=== PATIENT | female | born 1990 | race Caucasian/White ===

== ENCOUNTER 2017-07-22 12:14 | Emergency (ER) | payer SELFPAY ==
--- NOTE | 2017-07-22 13:41 | RAD REPORT ---
EXAM DESCRIPTION: RAD - Lumbar Spine 3 Views - 07/22/2017 1:33 pm CLINICAL HISTORY: Back pain FINDINGS: The alignment of the lumbar spine is satisfactory. No fracture or dislocation is seen. A small Schmorl's node is present at the L3-4 level Minimal spondylosis involves the lumbar spine
--- NOTE | 2017-07-22 13:59 | EDPHYS ---
Physician Documentation [facility] Name: Juanpablo De Paz Age: 27 yrs Sex: Female : 1990 Arrival Date: 07/22/2017 Time: 12:17 Bed 14 Private MD: ED Physician Adria Bey HPI: 07/22 13:40 This 27 yrs old Female presents to ER via Ambulatory with complaints of Back kb Pain. 13:40 The patient presents with pain that is acute, with no known mechanism of injury. The kb symptoms are located in the low back. The patient has not experienced similar symptoms in the past. The patient has not recently seen a physician. 13:41 Onset: The symptoms/episode began/occurred 3 day(s) ago. The pain radiates to the right kb leg. Associated signs and symptoms: The patient has no apparent associated signs or symptoms. The problem was sustained from unknown cause. Modifying factors: The patient symptoms are alleviated by nothing, the patient symptoms are aggravated by nothing. Severity of symptoms: At their worst the symptoms were mild, moderate, in the emergency department the symptoms are unchanged. 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 - Social history:: Smoking status: Patient/guardian denies using tobacco. ROS: 13:39 Constitutional: Negative for fever, chills, and weight loss, Cardiovascular: Negative kb for chest pain, palpitations, and edema, Respiratory: Negative for shortness of breath, cough, wheezing, and pleuritic chest pain, Abdomen/GI: Negative for abdominal pain, nausea, vomiting, diarrhea, and constipation, : Negative for injury, bleeding, discharge, and swelling, MS/Extremity: Negative for injury and deformity, Skin: Negative for injury, rash, and discoloration, Neuro: Negative for headache, weakness, numbness, tingling, and seizure. 13:39 Back: Positive for pain at rest, pain with movement, radiated pain, of the low back area. Exam: 13:39 Constitutional: This is a well developed, well nourished patient who is awake, alert, kb and in no acute distress. Head/Face: Normocephalic, atraumatic. Chest/axilla: Normal chest wall appearance and motion. Nontender with no deformity. No lesions are appreciated. Cardiovascular: Regular rate and rhythm with a normal S1 and S2. No gallops, murmurs, or rubs. Normal PMI, no JVD. No pulse deficits. Respiratory: Lungs have equal breath sounds bilaterally, clear to auscultation and percussion. No rales, rhonchi or wheezes noted. No increased work of breathing, no retractions or nasal flaring. Abdomen/GI: Soft, non-tender, with normal bowel sounds. No distension or tympany. No guarding or rebound. No evidence of tenderness throughout. Skin: Warm, dry with normal turgor. Normal color with no rashes, no lesions, and no evidence of cellulitis. MS/ Extremity: Pulses equal, no cyanosis. Neurovascular intact. Full, normal range of motion. Neuro: Awake and alert, GCS 15, oriented to person, place, time, and situation. Cranial nerves II-XII grossly intact. Motor strength 5/5 in all extremities. Sensory grossly intact. Cerebellar exam normal. Normal gait. 13:39 Back: pain, that is moderate, of the lumbar area, ROM is normal, normal spinal alignment noted. Vital Signs: 12:29 BP 110 / 65; Pulse 59; Resp 14; Temp 98.0(O); Pulse Ox 100% on R/A; Weight 79.38 kg lk1 (R); Height 5 ft. 7 in. (170.18 cm) (R); Pain 8/10; 13:39 BP 116 / 63; Pulse 53; Resp 16; Pulse Ox 100% ; mh5 14:08 BP 108 / 60; Pulse 52; Resp 16 S; Pulse Ox 98% on R/A; jl7 14:39 BP 107 / 60; Pulse 58; Resp 16 S; Pulse Ox 99% on R/A; Pain 6/10; jl7 12:29 Body Mass Index 27.41 (79.38 kg, 170.18 cm) lk1 MDM: 12:38 Patient medically screened. kb 13:40 Data reviewed: vital signs, nurses notes. Data interpreted: Pulse oximetry: on room air kb is 100 %. Interpretation: normal. 13:43 Counseling: I had a detailed discussion with the patient and/or guardian regarding: the kb historical points, exam findings, and any diagnostic results supporting the discharge/admit diagnosis, radiology results, the need for outpatient follow up, a family practitioner, to return to the emergency department if symptoms worsen or persist or if there are any questions or concerns that arise at home. 07/22 13:10 Order name: Urine Dipstick--Ancillary (enter results) bd 07/22 13:10 Order name: Urine --Ancillary (enter results) bd 07/22 12:48 Order name: Lumbar Spine (3 Views) XRAY; Complete Time: 13:42 kb 07/22 12:51 Order name: Urine Test (obtain specimen); Complete Time: 13:06 iw Administered Medications: 14:06 Drug: TORadol 60 mg Route: IM; Site: right gluteus; jl7 14:39 Follow up: Response: No adverse reaction; Pain is decreased jl7 Disposition: 07/23 07:30 Co-signature as Attending Physician, Adria Bey MD I agree with the assessment and sakshi plan of care. Disposition: 07/22/17 13:58 Discharged to Home. Impression: Low back pain. - Condition is Stable. - Discharge Instructions: Back Pain, Adult, [id number]. - Prescriptions for Prednisone 20 mg Oral Tablet - take 1 tablet by ORAL route once daily for 5 days; 5 tablet. Cyclobenzaprine 10 mg Oral Tablet - take 1 tablet by ORAL route every 8 hours As needed; 21 tablet. - Medication Reconciliation Form, Thank You Letter, Antibiotic Education, Prescription Opioid Use form. - Follow up: Emergency Department; When: As needed; Reason: Worsening of condition. Follow up: Private Physician; When: 2 - 3 days; Reason: Recheck today's complaints, Continuance of care, Re-evaluation by your physician. Signatures: Dispatcher [employer] Mandy Rich, ZORA HYLTON-Adria Medeiros MD MD cha Williams, Irene, RN Mallory Barnard RN RN lk1 Luanne Scott RN RN jl7
--- NOTE | 2017-07-22 13:59 | ER ---
Nurse's Notes [facility] Name: Juanpablo De Paz Age: 27 yrs Sex: Female : 1990 Arrival Date: 07/22/2017 Time: 12:17 Bed 14 Private MD: Diagnosis: Low back pain Presentation: 07/22 12:28 Presenting complaint: Patient states: "I have had back pain for a few days and this lk1 morning when I got up, I couldn't lift my right leg. It feels like everything in my lower back is shattered.". Transition of care: patient was not received from another setting of care. Onset of symptoms was July 20, 2017. Care prior to arrival: None. 12:28 Method Of Arrival: Ambulatory lk1 12:28 Acuity: ARTURO 4 lk1 Triage Assessment: 12:29 General: Appears uncomfortable, Behavior is calm, cooperative, appropriate for age. lk1 Pain: Complains of pain in low back area Pain currently is 8 out of 10 on a pain scale. Musculoskeletal: Circulation, motion, and sensation intact. Range of motion: intact in all extremities, Swelling absent. 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 - Social history:: Smoking status: Patient/guardian denies using tobacco. Screenin:35 Abuse screen: Denies threats or abuse. Denies injuries from another. Nutritional jl7 screening: No deficits noted. Tuberculosis screening: No symptoms or risk factors identified. Fall Risk None identified. Assessment: 12:35 General: Appears in no apparent distress. uncomfortable, Behavior is calm, cooperative, jl7 appropriate for age. Pain: Complains of pain in low back area Pain radiates to right leg Pain Quality of pain is described as shooting, Pain began 1 day ago. Is continuous. Neuro: Level of Consciousness is awake, alert, obeys commands, Oriented to person, place, time, situation, Moves all extremities. Cardiovascular: Patient's skin is warm and dry. Respiratory: Airway is patent Respiratory effort is even, unlabored, Respiratory pattern is regular, symmetrical. Derm: Skin is pink, warm \\T\\ dry. 13:30 Reassessment: No changes from previously documented assessment. Patient and/or family jl7 updated on plan of care and expected duration. Pain level reassessed. Patient is alert, oriented x 3, equal unlabored respirations, skin warm/dry/pink. 13:45 Reassessment: Pt requesting pain medications, provider notified, see MAR for orders. jl7 Vital Signs: 12:29 BP 110 / 65; Pulse 59; Resp 14; Temp 98.0(O); Pulse Ox 100% on R/A; Weight 79.38 kg lk1 (R); Height 5 ft. 7 in. (170.18 cm) (R); Pain 8/10; 13:39 BP 116 / 63; Pulse 53; Resp 16; Pulse Ox 100% ; mh5 14:08 BP 108 / 60; Pulse 52; Resp 16 S; Pulse Ox 98% on R/A; jl7 14:39 BP 107 / 60; Pulse 58; Resp 16 S; Pulse Ox 99% on R/A; Pain 6/10; jl7 12:29 Body Mass Index 27.41 (79.38 kg, 170.18 cm) lk1 ED Course: 12:17 Patient arrived in ED. mr 12:29 Triage completed. lk1 12:29 Arm band placed on right wrist. lk1 12:35 Patient has correct armband on for positive identification. Placed in gown. Bed in low jl7 position. Call light in reach. Side rails up X 1. Pulse ox on. NIBP on. 12:36 Luanne Scott RN is Primary Nurse. jl7 12:38 Mandy Martel FNP-C is PHCP. kb 12:38 Adria Bey MD is Attending Physician. kb 12:51 Radiology exam delayed due to test not completed at this time. jb2 13:06 Urine collected: clean catch specimen, clear. dh3 13:16 Patient moved to radiology via wheelchair. la2 13:29 X-ray completed. Patient tolerated procedure well. Patient moved back from radiology. la2 13:30 Lumbar Spine (3 Views) XRAY In Process Unspecified. EDMS 14:38 No provider procedures requiring assistance completed. Patient did not have IV access jl7 during this emergency room visit. Administered Medications: 14:06 Drug: TORadol 60 mg Route: IM; Site: right gluteus; jl7 14:39 Follow up: Response: No adverse reaction; Pain is decreased jl7 Outcome: 13:58 Discharge ordered by MD. ventura 14:38 Discharged to home ambulatory. jl7 14:38 Condition: stable 14:38 Discharge instructions given to patient, Instructed on discharge instructions, follow up and referral plans. medication usage, Demonstrated understanding of instructions, follow-up care, medications, Prescriptions given X 2. 14:39 Patient left the ED. jl7 Signatures: Dispatcher [employer] EDMS Mandy Martel, MILK RUNNER-C MILK RUNNER-Ckb Bridget TaylorkaushikMaxx Leah, RN RN lk1 Bridget Hong Jahala, RN RN jl7 Heena Wagner 3 Cynthia Valentine
[2017-07-22] MEDS ORDERED: KETOROLAC 30 MG/ML INJ ONE (14:15)
[2017-07-22 14:43] VITALS: TEMP 98
[2017-07-22 14:47] VITALS: BP 107/60; O2SAT 99
[2017-07-22 15:58] LABS: Urine Blood TRACE (NEG); Urine Glucose NEGATIVE (NEG); Urine Protein NEGATIVE (NEG)
== END 2017-07-22 14:39 | disposition home or self-care (01) ==
LOC: ER 12:14
DX: M54.5 Low back pain (principal); Z88.8 Allergy status to other drugs, medicaments and biological substances
CPT/HCPCS: 72100; 81003; 81025; 96372; 99284

== ENCOUNTER 2017-10-02 10:14 | Emergency (ER) | payer SELFPAY ==
[2017-10-02] MEDS ORDERED: TETRACAINE HCL 0.5% 2ML OPTH ONE (11:23)
[2017-10-02] MEDS ORDERED: FLUORESCEIN SODIUM 0.6 MG/WRAP ONE (11:23)
--- NOTE | 2017-10-02 11:55 | EDPHYS ---
Physician Documentation [facility] Name: Juanpablo De Paz Age: 27 yrs Sex: Female : 1990 Arrival Date: 10/02/2017 Time: 10:17 Bed 20 Private MD: None, None ED Physician Geovanny Encinas HPI: 10/02 11:04 This 27 yrs old Female presents to ER via Ambulatory with complaints of Eye jmm Problem. 11:04 The patient is experiencing matting or discharge, redness. Onset: The symptoms/episode jmm began/occurred 1 day(s) ago. Associated signs and symptoms: Pertinent positives: runny nose, congestion. Patient complains of itching to the right eye, irritation and drainage beginning 1 day ago. States having cough and congestion for 4 days. . 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 - Social history:: Smoking status: Patient uses tobacco products, smokes one-half pack cigarettes per day. - Ebola Screening: : No symptoms or risks identified at this time. ROS: 11:04 Constitutional: Negative for fever, chills, and weight loss. jmm 11:04 Abdomen/GI: Negative for abdominal pain, nausea, vomiting, diarrhea, and constipation, Back: Negative for injury and pain, : Negative for injury, bleeding, discharge, and swelling, MS/Extremity: Negative for injury and deformity, Skin: Negative for injury, rash, and discoloration, Neuro: Negative for headache, weakness, numbness, tingling, and seizure. 11:04 Eyes: Positive for discharge, redness. 11:04 ENT: Positive for sinus congestion. 11:04 Respiratory: Positive for cough. 11:04 All other systems are negative. Exam: 11:04 Constitutional: This is a well developed, well nourished patient who is awake, alert, jmm and in no acute distress. Head/Face: atraumatic. 11:04 Eyes: Extraocular movements: intact throughout, Conjunctiva: injected, in the right eye. 11:04 Neck: ROM/movement: is normal. 11:04 Cardiovascular: Rate: normal, Rhythm: regular. 11:04 Respiratory: the patient does not display signs of respiratory distress, Respirations: normal, Breath sounds: are clear throughout. 11:04 Abdomen/GI: Inspection: abdomen appears normal. 11:04 Back: ROM is normal. 11:04 Musculoskeletal/extremity: ROM: intact in all extremities. 11:04 Skin: Appearance: Color: normal in color. 11:04 Neuro: Orientation: is normal, Mentation: is normal, Memory: is normal. 11:04 Psych: Behavior/mood is pleasant, cooperative. 11:04 Eyes: Corneas: abrasion, is not appreciated, a fluorescein strip employed to [facility] the findings. 11:04 Visual Acuity: I have reviewed the nursing documentation. [facility] Vital Signs: 10:25 BP 114 / 63; Pulse 58; Resp 16 S; Temp 98.5(O); Pulse Ox 100% on R/A; Weight 79.38 kg aa5 (R); Height 5 ft. 7 in. (170.18 cm) (R); Pain 0/10; 12:01 BP 121 / 69; Pulse 63; Resp 19; Pulse Ox 99% on R/A; aj 10:25 Body Mass Index 27.41 (79.38 kg, 170.18 cm) aa5 Visual Acuity: 11:17 Left Eye Visual acuity 20/30, ; Right Eye Visual acuity 20/15, ; Both Eyes Visual dh3 acuity 20/15; Without Lenses; MDM: 11:04 [facility] medically screened. [facility] 11:07 Differential diagnosis: Infectious conjunctivitis in right eye. Data reviewed: [facility] signs, nurses notes. 12:00 Counseling: I had a detailed discussion with the patient and/or guardian regarding: the [facility] historical points, exam findings, and any diagnostic results supporting the discharge/admit diagnosis, the presence of at least one elevated blood pressure reading (>120/80) during this emergency department visit, the need for outpatient follow up, to return to the emergency department if symptoms worsen or persist or if there are any questions or concerns that arise at home. 10/02 11:04 Order name: Fluoresene Opth strip; Complete Time: 11:21 [facility] 10/02 11:04 Order name: Visual Acuity; Complete Time: 11:18 [facility] Administered Medications: 11:57 Drug: Tetracaine Drops 0.5 % 1 drops Route: Ophthalmic; Site: right eye; aj Disposition: 14:37 Co-signature as Attending Physician, Geovanny Encinas MD I agree with the assessment and kdr plan of care. Disposition: 10/02/17 11:55 Discharged to Home. Impression: Other acute conjunctivitis. - Condition is Stable. - Discharge Instructions: Eye - Viral Conjunctivitis. - Prescriptions for Erythromycin 5 mg/gram (0.5 %) Ophthalmic Ointment - apply 1 ribbon by OPHTHALMIC route every 8 hours; 1 tube. - Work release form, Medication Reconciliation Form, Thank You Letter, Antibiotic Education, Prescription Opioid Use form. - Follow up: Private Physician; When: 1 - 2 days; Reason: Continuance of care. Signatures: Gloria Smith, RN Geovanny Peterson MD MD kdr Mickail, Joel, PA PA jmm Calderon, Audri, RN RN aa5 Corrections: (The following items were deleted from the chart) 12:03 11:55 10/02/2017 11:55 Discharged to Home. Impression: Other acute conjunctivitis. aj Condition is Stable. Forms are Medication Reconciliation Form, Thank You Letter, Antibiotic Education, Prescription Opioid Use. Follow up: Private Physician; When: 1 - 2 days; Reason: Continuance of care. ginna
--- NOTE | 2017-10-02 11:55 | ER ---
Nurse's Notes [facility] Name: Juanpablo De Paz Age: 27 yrs Sex: Female : 1990 Arrival Date: 10/02/2017 Time: 10:17 Bed 20 Private MD: None, None Diagnosis: Other acute conjunctivitis Presentation: 10/02 10:24 Presenting complaint: Patient states: drainage to right eye x 4 days. Pt states "my now aa5 it's starting to get red and irritated and the drainage is yellowish now". Transition of care: patient was not received from another setting of care. Onset of symptoms was September 2017. Risk Assessment: Do you want to hurt yourself or someone else? Patient reports no desire to harm self or others. Initial Sepsis Screen: Does the patient meet any 2 criteria? No. Patient's initial sepsis screen is negative. Does the patient have a suspected source of infection? No. Patient's initial sepsis screen is negative. Care prior to arrival: None. 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 - Social history:: Smoking status: Patient uses tobacco products, smokes one-half pack cigarettes per day. - Ebola Screening: : No symptoms or risks identified at this time. Screenin:34 Abuse screen: Denies threats or abuse. Denies injuries from another. Nutritional aj screening: No deficits noted. Tuberculosis screening: No symptoms or risk factors identified. Fall Risk None identified. Assessment: 10:33 General: Appears in no apparent distress. comfortable, Behavior is calm, cooperative, aj appropriate for age. Pain: Denies pain. Neuro: Level of Consciousness is awake, alert, obeys commands, Oriented to person, place, time, situation, Appropriate for age. Respiratory: Airway is patent Respiratory effort is even, unlabored, Respiratory pattern is regular, symmetrical. EENT: Reports discharge from right eye, redness to conjunctiva. Vital Signs: 10:25 BP 114 / 63; Pulse 58; Resp 16 S; Temp 98.5(O); Pulse Ox 100% on R/A; Weight 79.38 kg aa5 (R); Height 5 ft. 7 in. (170.18 cm) (R); Pain 0/10; 12:01 BP 121 / 69; Pulse 63; Resp 19; Pulse Ox 99% on R/A; aj 10:25 Body Mass Index 27.41 (79.38 kg, 170.18 cm) aa5 Visual Acuity: 11:17 Left Eye Visual acuity 20/30, ; Right Eye Visual acuity 20/15, ; Both Eyes Visual dh3 acuity 20/15; Without Lenses; ED Course: 10:17 Patient arrived in ED. sb2 10:18 None, None is Private Physician. sb2 10:25 Triage completed. aa5 10:29 Kyle Solorio PA is PHCP. [facility] 10:29 Geovanny Encinas MD is Attending Physician. [facility] 10:33 Gloria Smith, RN is Primary Nurse. aj 10:34 Patient has correct armband on for positive identification. aj 12:01 No provider procedures requiring assistance completed. Patient did not have IV access aj during this emergency room visit. Administered Medications: 11:57 Drug: Tetracaine Drops 0.5 % 1 drops Route: Ophthalmic; Site: right eye; aj Outcome: 11:55 Discharge ordered by . jmm 12:01 Discharged to home ambulatory. aj 12:01 Condition: good 12:01 Discharge instructions given to patient, Instructed on discharge instructions, follow up and referral plans. medication usage, Demonstrated understanding of instructions, follow-up care, medications, Prescriptions given X 1. 12:03 Patient left the ED. aj Signatures: Gloria Smith, RN RN Kyle Hayes PA PA jmm Calderon, Audri, RN RN 5 Heena Wagner [facility] Nieves Garcia sb2
[2017-10-02 12:21] VITALS: TEMP 98.5
[2017-10-02 12:22] VITALS: BP 121/69; O2SAT 99
== END 2017-10-02 12:03 | disposition home or self-care (01) ==
LOC: ER 10:14
DX: H10.31 Unspecified acute conjunctivitis, right eye (principal); F17.210 Nicotine dependence, cigarettes, uncomplicated; Z88.8 Allergy status to other drugs, medicaments and biological substances
CPT/HCPCS: 99283

== ENCOUNTER 2018-02-01 09:49 | Emergency (ER) | payer SELFPAY ==
[2018-02-01 10:38] LABS: Urine Bacteria <20 /HPF (<20); Urine Culture Reflex Order REFLEXED; Urine RBC NONE SEEN /HPF (NONE SEEN)
--- NOTE | 2018-02-01 11:01 | EDPHYS ---
Physician Documentation [facility] Name: Juanpablo De Paz Age: 28 yrs Sex: Female : 1990 Arrival Date: 02/01/2018 Time: 09:51 Bed 23 Private MD: ED Physician Griselda Turcios HPI: 02/01 10:36 This 28 yrs old Female presents to ER via Ambulatory with complaints of ma2 Urinary Problem. 10:36 The patient presents with urinary symptoms, dysuria. Onset: The symptoms/episode ma2 began/occurred gradually, 3 day(s) ago. Associated signs and symptoms: Pertinent positives: Pertinent negatives: constipation, diarrhea, dysuria, nausea, urinary frequency, vaginal discharge, vomiting. Severity of symptoms: At their worst the symptoms were mild, in the emergency department the symptoms are unchanged. The patient has experienced similar episodes in the past. 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 - Social history:: Smoking status: Patient uses tobacco products, smokes one-half pack cigarettes per day, Patient/guardian denies using alcohol, street drugs, The patient lives with family. - Ebola Screening: : No symptoms or risks identified at this time. - Family history:: not pertinent. ROS: 10:36 Positive for urinary symptoms, Negative for injury or acute deformity, hematuria, ma2 pelvic pain, flank pain, difficulty urinating, bladder incontinence, foul smelling urine, vaginal bleeding, vaginal discharge, vaginal itching, menstrual abnormality, acute changes. 10:36 Constitutional: Negative for fever, chills, and weight loss. 10:36 All other systems are negative. Exam: 10:36 Constitutional: This is a well developed, well nourished patient who is awake, alert, ma2 and in no acute distress. Chest/axilla: Normal chest wall appearance and motion. Nontender with no deformity. No lesions are appreciated. Cardiovascular: Regular rate and rhythm with a normal S1 and S2. No gallops, murmurs, or rubs. Normal PMI, no JVD. No pulse deficits. Respiratory: Lungs have equal breath sounds bilaterally, clear to auscultation and percussion. No rales, rhonchi or wheezes noted. No increased work of breathing, no retractions or nasal flaring. Abdomen/GI: Soft, non-tender, with normal bowel sounds. No distension or tympany. No guarding or rebound. No evidence of tenderness throughout. MS/ Extremity: Pulses equal, no cyanosis. Neurovascular intact. Full, normal range of motion. Neuro: Awake and alert, GCS 15, oriented to person, place, time, and situation. Cranial nerves II-XII grossly intact. Motor strength 5/5 in all extremities. Sensory grossly intact. Cerebellar exam normal. Normal gait. Vital Signs: 09:51 Pulse 71; Resp 18; Temp 97.1; Pulse Ox 100% ; Weight 77.11 kg; Height 5 ft. 7 in. sv (170.18 cm); Pain 7/10; 10:05 BP 140 / 77; aj1 11:12 BP 127 / 74; Pulse 59; Resp 16; Pulse Ox 100% on R/A; aj1 09:51 Body Mass Index 26.63 (77.11 kg, 170.18 cm) sv MDM: 09:57 Patient medically screened. ma2 10:36 Differential diagnosis: menorrhea, urinary tract infection. Data reviewed: vital signs, ca2 nurses notes, EMS record. Counseling: I had a detailed discussion with the patient and/or guardian regarding: the historical points, exam findings, and any diagnostic results supporting the discharge/admit diagnosis, the presence of at least one elevated blood pressure reading (>120/80) during this emergency department visit, lab results, the need for outpatient follow up. 02/01 10:02 Order name: Urine Microscopic Only; Complete Time: 10:44 ca2 02/01 10:40 Order name: Urine Culture EDMS 02/01 10:02 Order name: Urine Dipstick-Ancillary (obtain specimen); Complete Time: 10:16 [facility] 02/01 10:59 Order name: Urine Dipstick--Ancillary (enter results) bd 02/01 10:59 Order name: Urine --Ancillary (enter results) bd Administered Medications: No medications were administered Disposition: 02/01/18 11:00 Discharged to Home. Impression: Cystitis, unspecified without hematuria. - Condition is Stable. - Discharge Instructions: Urinary Tract Infection, Adult. - Prescriptions for Tylenol- Codeine #3 300-30 mg Oral Tablet - take 2 tablet by ORAL route every 6 hours As needed; 6 tablet. Bactrim DS 800- 160 mg Oral Tablet - take 1 tablet by ORAL route every 12 hours for 5 days; 10 tablet. - Medication Reconciliation Form, Thank You Letter, Antibiotic Education, Prescription Opioid Use form. - Follow up: Private Physician; When: Tomorrow; Reason: Continuance of care. Signatures: Dispatcher [employer] EDCrystal Alvarez RN RN aj1 Laine Lyles RN RN sv Alzahri, Mohammad, MD MD ma2 Corrections: (The following items were deleted from the chart) 11:14 11:00 02/01/2018 11:00 Discharged to Home. Impression: Cystitis, unspecified without aj1 hematuria. Condition is Stable. Forms are Medication Reconciliation Form, Thank You Letter, Antibiotic Education, Prescription Opioid Use. Follow up: Private Physician; When: Tomorrow; Reason: Continuance of care. ma2
--- NOTE | 2018-02-01 11:01 | ER ---
Nurse's Notes [facility] Name: Juanpablo De Paz Age: 28 yrs Sex: Female : 1990 Arrival Date: 02/01/2018 Time: 09:51 Bed 23 Private MD: Diagnosis: Cystitis, unspecified without hematuria Presentation: 02/01 09:51 Presenting complaint: Patient states: dysuria, burning w/urination and lower abd pain sv since Thursday. c/o lightheaded, denies fever or diarrhea. Transition of care: patient was not received from another setting of care. Onset of symptoms was January 30, 2018. Care prior to arrival: None. 09:51 Method Of Arrival: Ambulatory sv 09:51 Acuity: ARTURO 3 sv 10:19 Initial Sepsis Screen: Does the patient meet any 2 criteria? No. Patient's initial aj1 sepsis screen is negative. Does the patient have a suspected source of infection? Yes: Dysuria/Frequency/Urgency/UTI. 10:19 Risk Assessment: Do you want to hurt yourself or someone else? Patient reports no aj1 desire to harm self or others. 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 - Social history:: Smoking status: Patient uses tobacco products, smokes one-half pack cigarettes per day, Patient/guardian denies using alcohol, street drugs, The patient lives with family. - Ebola Screening: : No symptoms or risks identified at this time. - Family history:: not pertinent. Screenin:05 Abuse screen: Denies threats or abuse. Denies injuries from another. Nutritional aj1 screening: No deficits noted. Tuberculosis screening: No symptoms or risk factors identified. 11:13 Fall Risk None identified. aj1 Assessment: 10:05 General: Appears in no apparent distress. uncomfortable, Behavior is calm, cooperative, aj1 appropriate for age. Pain: Complains of pain in right lower quadrant and left lower quadrant. Neuro: Level of Consciousness is awake, alert, obeys commands, Oriented to person, place, time, situation, Reports dizziness, Patient states that she feels like she is dehydrated because she does not drink enough water. Cardiovascular: Patient's skin is warm and dry. Respiratory: Airway is patent Respiratory effort is even, unlabored, Respiratory pattern is regular, symmetrical. GI: Abdomen is flat, non-distended, Abd is soft and non tender X 4 quads. Reports lower abdominal pain, nausea, Patient currently denies diarrhea, vomiting. : Reports burning with urination. EENT: No signs and/or symptoms were reported regarding the EENT system. Derm: No signs and/or symptoms reported regarding the dermatologic system. Skin is pink, warm \T\ dry. normal. Musculoskeletal: No signs and/or symptoms reported regarding the musculoskeletal system. Circulation, motion, and sensation intact. 10:21 Reassessment: Patient given water to drink for oral rehydration per verbal order from aj1 Dr. Turcios. 11:12 Reassessment: Patient appears in no apparent distress at this time. No changes from aj1 previously documented assessment. Patient and/or family updated on plan of care and expected duration. Pain level reassessed. Patient is alert, oriented x 3, equal unlabored respirations, skin warm/dry/pink. Vital Signs: 09:51 Pulse 71; Resp 18; Temp 97.1; Pulse Ox 100% ; Weight 77.11 kg; Height 5 ft. 7 in. sv (170.18 cm); Pain 7/10; 10:05 BP 140 / 77; aj1 11:12 BP 127 / 74; Pulse 59; Resp 16; Pulse Ox 100% on R/A; aj1 09:51 Body Mass Index 26.63 (77.11 kg, 170.18 cm) sv ED Course: 09:51 Patient arrived in ED. as 09:51 Arm band placed on Patient placed in an exam room, on a stretcher. sv 09:56 Griselda Turcios MD is Attending Physician. ma2 09:58 Triage completed. sv 09:59 Crystal Coats, ALTHEA is Primary Nurse. aj1 10:05 Patient has correct armband on for positive identification. Bed in low position. Call aj1 light in reach. Side rails up X 1. 10:05 No provider procedures requiring assistance completed. aj1 10:11 Urine collected: clean catch specimen, clear. aj1 11:13 Patient did not have IV access during this emergency room visit. aj1 Administered Medications: No medications were administered Outcome: 11:00 Discharge ordered by . cesario 11:13 Discharged to home ambulatory. aj1 11:13 Condition: good 11:13 Discharge instructions given to patient, Instructed on discharge instructions, follow up and referral plans. no drinking with medication, no driving heavy equipment, medication usage, Demonstrated understanding of instructions, follow-up care, medications, Prescriptions given X 2. 11:14 Patient left the ED. aj1 Addendum: 02/04/2018 08:48 Addendum: Culture Results: Positive urine culture. No further action required. Bacteria s s sensitive to prescribed antibiotic. Signatures: Crystal Coats RN RN aj1 Laine Lyles RN RN sv Martinez, Amelia as Smirch, Shelby, RN RN Griselda Turcios MD MD ma2 Corrections: (The following items were deleted from the chart) 02/01 10:20 10:05 Neuro: Level of Consciousness is awake, alert, obeys commands, Oriented to aj1 person, place, time, situation, aj1
[2018-02-01 12:58] LABS: Urine Blood TRACE (NEG); Urine Glucose NEGATIVE (NEG); Urine Protein NEGATIVE (NEG)
[2018-02-02 14:35] VITALS: BP 127/74; TEMP 97.1; O2SAT 100
== END 2018-02-01 11:14 | disposition home or self-care (01) ==
LOC: ER 09:49
DX: N30.90 Cystitis, unspecified without hematuria (principal); F17.210 Nicotine dependence, cigarettes, uncomplicated; Z88.8 Allergy status to other drugs, medicaments and biological substances
CPT/HCPCS: 81003; 81015; 81025; 87077; 87086; 87088; 87186; 99283

== ENCOUNTER 2018-04-09 09:50 | Emergency (ER) | payer SELFPAY ==
--- NOTE | 2018-04-09 10:33 | RAD REPORT ---
EXAM DESCRIPTION: US - Extremity Venous Uni Ltd - 04/09/2018 10:28 am CLINICAL HISTORY: PAIN Leg swelling and edema. COMPARISON: No comparisons FINDINGS: Left lower extremity venous system was interrogated with Doppler technique. Normal flow, c ompressibility and augmentation was noted. There is no DVT present. IMPRESSION: No evidence of left lower extremity deep venous thrombosis.
[2018-04-09] MEDS ORDERED: IBUPROFEN 200 MG TAB PO ONE (10:58)
[2018-04-09] MEDS ORDERED: IBUPROFEN 400 MG TAB ONE (10:58)
[2018-04-09] MEDS ORDERED: HYDROCODONE/APAP 5/325 MG TAB ONE (10:58)
--- NOTE | 2018-04-09 11:17 | ER ---
Nurse's Notes [facility] Name: Juanpablo De Paz Age: 28 yrs Sex: Female : 1990 Arrival Date: 04/09/2018 Time: 09:53 Bed 13 Private MD: None, None Diagnosis: Pain in left lower leg Presentation: 04/09 09:53 Presenting complaint: Patient states: Thursday, dandy been dealing with my L leg hurting, hj back of my leg below the knee and my L foot; reports foot numbness; pain is 9/10; denies trauma to the area; denies any open wound; denies fever and chills; reports hx of sciata pain;. Transition of care: patient was not received from another setting of care. Onset of symptoms was April 09, 2018. Risk Assessment: Do you want to hurt yourself or someone else? Patient reports no desire to harm self or others. Initial Sepsis Screen: Does the patient meet any 2 criteria? No. Patient's initial sepsis screen is negative. Does the patient have a suspected source of infection? No. Patient's initial sepsis screen is negative. Care prior to arrival: None. 09:53 Method Of Arrival: Ambulatory 09:53 Acuity: ARTURO 4 hj Triage Assessment: 09:56 General: Appears in no apparent distress. uncomfortable, Behavior is calm, cooperative, hj appropriate for age. Pain: Complains of pain in left leg. 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 - Social history:: Smoking status: Patient uses tobacco products, smokes one-half pack cigarettes per day, Patient uses alcohol, but reports only rare drinking. - Ebola Screening: : Patient negative for fever greater than or equal to 101.5 degrees Fahrenheit, and additional compatible Ebola Virus Disease symptoms Patient denies exposure to infectious person Patient denies travel to an Ebola-affected area in the 21 days before illness onset. Screenin:57 Abuse screen: Denies threats or abuse. Denies injuries from another. Nutritional hj screening: No deficits noted. Tuberculosis screening: No symptoms or risk factors identified. Fall Risk None identified. Assessment: 10:01 General: Appears in no apparent distress. Behavior is calm, cooperative. Pain: la1 Complains of pain in lateral aspect of left foot, left calf and medial aspect of left foot Pain currently is 9 out of 10 on a pain scale. Neuro: Level of Consciousness is awake, alert, obeys commands, Oriented to person, place, time, situation, Transit Police Officer are equal bilaterally Moves all extremities. Full function Gait is steady, Speech is normal, Facial symmetry appears normal, Pupils are PERRLA. Cardiovascular: Patient's skin is warm and dry. Respiratory: Airway is patent Respiratory effort is even, unlabored, Respiratory pattern is regular, symmetrical, Breath sounds are clear bilaterally. GI: No signs and/or symptoms were reported involving the gastrointestinal system. : No signs and/or symptoms were reported regarding the genitourinary system. 10:53 Reassessment: Patient appears in no apparent distress at this time. No changes from la1 previously documented assessment. Patient and/or family updated on plan of care and expected duration. Pain level reassessed. Vital Signs: 09:57 BP 120 / 69; Pulse 65; Resp 18; Temp 97.9(TE); Pulse Ox 100% on R/A; Weight 74.84 kg; hj Height 5 ft. 7 in. (170.18 cm); Pain 9/10; 09:57 Body Mass Index 25.84 (74.84 kg, 170.18 cm) ED Course: 09:53 Patient arrived in ED. mr 09:53 None, None is Private Physician. mr 09:56 Triage completed. hj 09:57 Arm band placed on right wrist. hj 09:59 Jarett Parikh, ALTHEA is Primary Nurse. la1 09:59 Patient has correct armband on for positive identification. Bed in low position. Call light in reach. Side rails up X 1. Adult w/ patient. 10:00 Eyal Toney NP is PHCP. pm1 10:00 Justin Ovalle MD is Attending Physician. pm1 10:28 Extremity Venous Uni Ltd US In Process Unspecified. EDMS 11:25 Crutch training done. Edin wrap to left knee. mh5 11:27 No provider procedures requiring assistance completed. Patient did not have IV access la1 during this emergency room visit. Administered Medications: 10:52 Drug: [place] 5 mg-325 mg 1 tabs Route: PO; la1 10:54 Follow up: Response: Medication administered at discharge. la1 10:52 Drug: Ibuprofen 600 mg Route: PO; la1 10:53 Follow up: Response: Medication administered at discharge. la1 Outcome: 11:17 Discharge ordered by MD. pm1 11:27 Discharged to home ambulatory, with crutches, with family. la1 11:27 Condition: stable 11:27 Discharge instructions given to patient, Instructed on discharge instructions, follow up and referral plans. no driving heavy equipment, medication usage, Demonstrated understanding of instructions, follow-up care, medications, crutch walking, Prescriptions given X 2. 11:27 Patient left the ED. la1 Signatures: Dispatcher [employer] ED Randi TaylorJarett, RN RN la1 Abdullahi Ventura RN RN hj Marinas, Patrick, NP MULTI OPERATION FORMING MACHINE SETTER 1 Bridget Hong [facility] Corrections: (The following items were deleted from the chart) 09:58 09:53 Presenting complaint: Patient states: Thursday, dandy been dealing with my L leg hj hurting, back of my leg below the knee and my L foot; reports foot numbness; pain is 9/10; denies trauma to the area; denies any open wound; denies fever and chills; hj 09:59 09:57 Pulse 65bpm; Resp 18bpm; Pulse Ox 100% RA; Temp 97.9F Temporal; 74.84 kg; Height hj 5 ft. 7 in.; BMI: 25.8; Pain 9/10; hj
--- NOTE | 2018-04-09 11:17 | EDPHYS ---
Physician Documentation [facility] Name: Juanpablo De Paz Age: 28 yrs Sex: Female : 1990 Arrival Date: 04/09/2018 Time: 09:53 Bed 13 Private MD: None, None ED Physician Justin Ovalle HPI: 04/09 10:06 This 28 yrs old Female presents to ER via Ambulatory with complaints of Left pm1 Leg Pain. 10:06 The patient presents with pain, that is acute. The complaints affect the left pm1 hamstring. Context: The problem was sustained at home, resulted from an unknown cause, the patient can fully bear weight, the patient is able to ambulate, with mild difficulty, Problem is a result from a previous injury: No. Onset: The symptoms/episode began/occurred 5 day(s) ago. Modifying factors: The symptoms are alleviated by remaining still, the symptoms are aggravated by straightening/flexing left knee. Associated signs and symptoms: Pertinent negatives calf tenderness, fever, nausea, numbness, swelling, tingling, vomiting, warmth. Treatment prior to arrival includes: no previous treatment. Severity of symptoms: in the emergency department the symptoms are unchanged. The patient has not experienced similar symptoms in the past. The patient has not recently seen a physician. 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 - Social history:: Smoking status: Patient uses tobacco products, smokes one-half pack cigarettes per day, Patient uses alcohol, but reports only rare drinking. - Ebola Screening: : Patient negative for fever greater than or equal to 101.5 degrees Fahrenheit, and additional compatible Ebola Virus Disease symptoms Patient denies exposure to infectious person Patient denies travel to an Ebola-affected area in the 21 days before illness onset. ROS: 10:06 Constitutional: Negative for fever, chills, and weight loss, Eyes: Negative for injury, pm1 pain, redness, and discharge, ENT: Negative for injury, pain, and discharge, Neck: Negative for injury, pain, and swelling, Cardiovascular: Negative for chest pain, palpitations, and edema, Respiratory: Negative for shortness of breath, cough, wheezing, and pleuritic chest pain, Abdomen/GI: Negative for abdominal pain, nausea, vomiting, diarrhea, and constipation, Back: Negative for injury and pain, : Negative for injury, bleeding, discharge, and swelling. 10:06 Skin: Negative for injury, rash, and discoloration. 10:06 MS/extremity: Positive for pain, tenderness, of the left hamstring, Negative for decreased range of motion, deformity, swelling. 10:06 Neuro: Positive for tingling, of the left foot, Negative for headache, weakness. Exam: 10:06 Constitutional: This is a well developed, well nourished patient who is awake, alert, pm1 and in no acute distress. Head/Face: Normocephalic, atraumatic. Neck: Trachea midline, no thyromegaly or masses palpated, and no cervical lymphadenopathy. Supple, full range of motion without nuchal rigidity, or vertebral point tenderness. No Meningismus. Chest/axilla: Normal chest wall appearance and motion. Nontender with no deformity. No lesions are appreciated. Cardiovascular: Regular rate and rhythm with a normal S1 and S2. No gallops, murmurs, or rubs. Normal PMI, no JVD. No pulse deficits. Respiratory: Lungs have equal breath sounds bilaterally, clear to auscultation and percussion. No rales, rhonchi or wheezes noted. No increased work of breathing, no retractions or nasal flaring. Abdomen/GI: Soft, non-tender, with normal bowel sounds. No distension or tympany. No guarding or rebound. No evidence of tenderness throughout. Back: No spinal tenderness. No costovertebral tenderness. Full range of motion. Skin: Warm, dry with normal turgor. Normal color with no rashes, no lesions, and no evidence of cellulitis. 10:06 Musculoskeletal/extremity: Extremities: grossly normal except: noted in the left hamstring: tenderness, Reproduction of left hamstring pain with flexion of left knee, There is no evidence of decreased ROM, deformity, ecchymosis, erythema, swelling. Vital Signs: 09:57 BP 120 / 69; Pulse 65; Resp 18; Temp 97.9(TE); Pulse Ox 100% on R/A; Weight 74.84 kg; hj Height 5 ft. 7 in. (170.18 cm); Pain 12/28; 09:57 Body Mass Index 25.84 (74.84 kg, 170.18 cm) hj MDM: 10:00 Patient medically screened. pm1 10:06 Data reviewed: vital signs. Data interpreted: Pulse oximetry: on room air is 100 %. pm1 Interpretation: normal. 11:10 Counseling: I had a detailed discussion with the patient and/or guardian regarding: the pm1 historical points, exam findings, and any diagnostic results supporting the discharge/admit diagnosis, radiology results, the need for outpatient follow up, a orthopedic surgeon, to return to the emergency department if symptoms worsen or persist or if there are any questions or concerns that arise at home. 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 pm1 No mention of cyst on radiology report. Reexamined patient and unable to palpated cyst. Recommended patient to follow up with orthopedics for further evaluation and treatment of possible sherman's cyst. 04/09 10:04 Order name: Extremity Venous Uni Ltd US; Complete Time: 10:43 pm1 04/09 11:17 Order name: Crutches; Complete Time: 11:25 pm1 04/09 11:20 Order name: Edin Wrap; Complete Time: 11:24 pm1 Administered Medications: 10:52 Drug: [place] 5 mg-325 mg 1 tabs Route: PO; la1 10:54 Follow up: Response: Medication administered at discharge. la1 10:52 Drug: Ibuprofen 600 mg Route: PO; la1 10:53 Follow up: Response: Medication administered at discharge. la1 Disposition: 11:43 Co-signature as Attending Physician, Justin Ovalle MD. rn Disposition: 04/09/18 11:17 Discharged to Home. Impression: Pain in left lower leg. - Condition is Stable. - Discharge Instructions: Sherman Cyst, Crutch Use, Musculoskeletal Pain. - Prescriptions for Tylenol- Codeine #3 300-30 mg Oral Tablet - take 2 tablets by ORAL route every 6 hours As needed; 20 tablet. Cyclobenzaprine 10 mg Oral Tablet - take 1 tablet by ORAL route every 8 hours As needed; 30 tablet. - Medication Reconciliation Form, Thank You Letter, Prescription Opioid Use form. - Follow up: Private Physician; When: 2 - 3 days; Reason: Recheck today's complaints, Continuance of care, Re-evaluation by your physician. - Problem is new. - Symptoms have improved. Signatures: Dispatcher [employer] EDMS Justin Ovalle MD MD rn Attema, Lee, RN RN la1 Abdullahi Ventura RN RN hj Marinas, Patrick, JAVON BLACK OXIDE OPERATOR pm1 Corrections: (The following items were deleted from the chart) 11:27 11:17 04/09/2018 11:17 Discharged to Home. Impression: Pain in left lower leg. la1 Condition is Stable. Discharge Instructions: [place]hrman Cyst, Musculoskeletal Pain, Crutch Use. Forms are Medication Reconciliation Form, Thank You Letter, Antibiotic Education, Prescription Opioid Use. Follow up: Private Physician; When: 2 - 3 days; Reason: Recheck today's complaints, Continuance of care, Re-evaluation by your physician. Problem is new. Symptoms have improved. pm1
[2018-04-09 11:39] VITALS: BP 120/69; TEMP 97.9; O2SAT 100
--- OUTSIDE RECORDS SUMMARY | 2018-04-09 18:42 | XMS REPORT ---
:1990 [facility] Address [address] [place] [address] Dr. Peoples [address] [place] [id number] Care Team Providers Name Role Phone Unavailable Unavailable Unavailable Problems This patient has no known problems. Allergies, Adverse Reactions, Alerts This patient has no known allergies or adverse reactions. Medications This patient has no known medications.
== END 2018-04-09 11:27 | disposition home or self-care (01) ==
LOC: ER 09:50
DX: M79.662 Pain in left lower leg (principal); F17.210 Nicotine dependence, cigarettes, uncomplicated; Z88.3 Allergy status to other anti-infective agents
CPT/HCPCS: 93971; 99284

== ENCOUNTER 2018-08-21 07:22 | Emergency (ER) | payer SELFPAY ==
--- OUTSIDE RECORDS SUMMARY | 2018-08-21 07:24 | XMS REPORT ---
:1990 [facility] Address [address] [place] [address] Dr. Peoples [address] [place] [address] Care Team Providers Name Role Phone Unavailable Unavailable Unavailable Problems This patient has no known problems. Allergies, Adverse Reactions, Alerts This patient has no known allergies or adverse reactions. Medications This patient has no known medications.
--- NOTE | 2018-08-21 08:31 | ER ---
Nurse's Notes [facility] Name: Juanpablo De Paz Age: 28 yrs Sex: Female : 1990 Arrival Date: 08/21/2018 Time: 07:25 Bed 18 Private MD: None, None Diagnosis: Sacroiliitis, not elsewhere classified;Sciatica, left side Presentation: 08/21 07:37 Presenting complaint: Patient states: "we drove to [place] for a last Thursday aa5 and I got back Thursday and on Thursday I threw up and after that my left leg has been hurting". Pt c/o left buttocks pain and left leg pain. Pt states "It feels like a Darron horse pain". Transition of care: patient was not received from another setting of care. Onset of symptoms was July 2018. Risk Assessment: Do you want to hurt yourself or someone else? Patient reports no desire to harm self or others. Initial Sepsis Screen: Does the patient meet any 2 criteria? No. Patient's initial sepsis screen is negative. Does the patient have a suspected source of infection? No. Patient's initial sepsis screen is negative. Care prior to arrival: None. 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 - Social history:: Smoking status: Patient uses tobacco products, smokes one-half pack cigarettes per day, Patient uses MJ. - Ebola Screening: : No symptoms or risks identified at this time. Screenin:55 Abuse screen: Denies threats or abuse. Denies injuries from another. Nutritional sg screening: No deficits noted. Tuberculosis screening: No symptoms or risk factors identified. Never had TB. Fall Risk None identified. Assessment: 07:55 General: Appears in no apparent distress. uncomfortable, well groomed, well developed, sg well nourished, Behavior is calm, cooperative, appropriate for age, quiet. Pain: Complains of pain in left hamstring Quality of pain is described as cramping " a sima horse sensation". Neuro: Level of Consciousness is awake, alert, obeys commands, Oriented to person, place, time, situation, Cpas are equal bilaterally Moves all extremities. Full function Gait is steady, Speech is normal. Cardiovascular: Capillary refill is brisk in bilateral fingers Patient's skin is warm and dry. Chest pain is denied. Respiratory: Airway is patent Respiratory effort is even, unlabored, Respiratory pattern is regular, symmetrical. GI: Abdomen is round non-distended, Reports normal bowel habits, tolerance of fluids, tolerance of food. : No signs and/or symptoms were reported regarding the genitourinary system. EENT: No signs and/or symptoms were reported regarding the EENT system. Derm: Skin is pink, warm \\T\\ dry. Musculoskeletal: No signs and/or symptoms reported regarding the musculoskeletal system. Vital Signs: 07:39 BP 116 / 77; Pulse 65; Resp 18 S; Temp 98.2(TE); Pulse Ox 99% on R/A; Weight 77.11 kg aa5 (R); Height 5 ft. 7 in. (170.18 cm) (R); Pain 9/10; 08:30 BP 112 / 70; Pulse 66; Resp 18; Temp 98.2; Pulse Ox 100% on R/A; sg 07:39 Body Mass Index 26.63 (77.11 kg, 170.18 cm) aa5 ED Course: 07:25 Patient arrived in ED. as 07:25 None, None is Private Physician. as 07:32 Molina Valdez MD is Attending Physician. ps1 07:37 Arm band placed on. aa5 07:39 Triage completed. aa5 07:55 Patient has correct armband on for positive identification. Bed in low position. Call sg light in reach. Pulse ox on. NIBP on. Warm blanket given. Head of bed elevated. 07:55 No provider procedures requiring assistance completed. Patient did not have IV access sg during this emergency room visit. 08:26 Juan Landon, ALTHEA is Primary Nurse. sg 08:29 Piotr Gallegos MD is Referral Physician. ps1 Administered Medications: No medications were administered Outcome: 08:31 Discharge ordered by . ps1 08:35 Discharged to home ambulatory, with family. sg 08:35 Condition: good 08:35 Discharge instructions given to patient, family, Instructed on discharge instructions, follow up and referral plans. no drinking with medication, no driving heavy equipment, medication usage, safety practices, Demonstrated understanding of instructions, follow-up care, medications, Prescriptions given X 3. 08:37 Patient left the ED. sg Signatures: Juan Landon RN RN Susana Mott Audri, RN RN aa5 Molina Valdez MD MD ps1
--- NOTE | 2018-08-21 08:31 | EDPHYS ---
Physician Documentation [facility] Name: Juanpablo De Paz Age: 28 yrs Sex: Female : 1990 Arrival Date: 08/21/2018 Time: 07:25 Bed 18 Private MD: None, None ED Physician Molina Valdez HPI: 08/21 08:24 This 28 yrs old Female presents to ER via Ambulatory with complaints of Leg ps1 Pain. 08:24 Patient has a history of sciatica and now with worsening pain over the last couple of ps1 days. Atraumatic. No hx of immunosuppression, fever, urinary symptoms, fecal incontinence, or saddle anesthesia. Not on any medications. Pain rated as moderate to severe with movement. Describes pain as shooting. Tried stretching. Unable to get evaluated previously 2/2 lack of insurance. . 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 - Social history:: Smoking status: Patient uses tobacco products, smokes one-half pack cigarettes per day, Patient uses MJ. - Ebola Screening: : No symptoms or risks identified at this time. ROS: 08:24 Constitutional: Negative for fever, chills, and weight loss, Eyes: Negative for injury, ps1 pain, redness, and discharge, ENT: Negative for injury, pain, and discharge, Cardiovascular: Negative for chest pain, palpitations, and edema, Respiratory: Negative for shortness of breath, cough, wheezing, and pleuritic chest pain, Abdomen/GI: Negative for abdominal pain, nausea, vomiting, diarrhea, and constipation, MS/Extremity: Negative for injury and deformity, Skin: Negative for injury, rash, and discoloration, Neuro: Negative for headache, weakness, numbness, tingling, and seizure. 08:24 Back: Positive for pain with movement. Exam: 08:24 Constitutional: This is a well developed, well nourished patient who is awake, alert, ps1 and in no acute distress. Head/Face: Normocephalic, atraumatic. Eyes: Pupils equal round and reactive to light, extra-ocular motions intact. Lids and lashes normal. Conjunctiva and sclera are non-icteric and not injected. Neck: Trachea midline, no thyromegaly or masses palpated, and no cervical lymphadenopathy. Supple, full range of motion without nuchal rigidity, or vertebral point tenderness. No Meningismus. Chest/axilla: Normal chest wall appearance and motion. Nontender with no deformity. No lesions are appreciated. Cardiovascular: Regular rate and rhythm. No gallops, murmurs, or rubs. Normal PMI, no JVD. No pulse deficits. Respiratory: Lungs have equal breath sounds bilaterally, clear to auscultation and percussion. No rales, rhonchi or wheezes noted. No increased work of breathing, no retractions or nasal flaring. Abdomen/GI: Soft, non-tender, with normal bowel sounds. No distension or tympany. No guarding or rebound. No evidence of tenderness throughout. Skin: Warm, dry with normal turgor. Normal color with no rashes, no lesions, and no evidence of cellulitis. MS/ Extremity: Pulses equal, no cyanosis. Neurovascular intact. Full, normal range of motion. Neuro: Awake and alert, GCS 15, oriented to person, place, time, and situation. Cranial nerves II-XII grossly intact. Sensory grossly intact. Psych: Awake, alert, with orientation to person, place and time. Behavior, mood, and affect are within normal limits. 08:24 Back: pain, that is moderate, patient was evaluated in the prone and seated position. Patient has leg length discrepancy on the left with SI joint dysfunction. Compensatory changes in lumbar spine at L3-5 with rotation to left. T7-9 RR. HVLA performed and increased ROM. Pain improved. . Vital Signs: 07:39 BP 116 / 77; Pulse 65; Resp 18 S; Temp 98.2(TE); Pulse Ox 99% on R/A; Weight 77.11 kg aa5 (R); Height 5 ft. 7 in. (170.18 cm) (R); Pain 9/10; 08:30 BP 112 / 70; Pulse 66; Resp 18; Temp 98.2; Pulse Ox 100% on R/A; sg 07:39 Body Mass Index 26.63 (77.11 kg, 170.18 cm) aa5 MDM: 08:24 Data reviewed: vital signs, nurses notes, and as a result, I will discharge patient. 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 08:31 Patient medically screened. ps1 Administered Medications: No medications were administered Disposition: 08/21/18 08:31 Discharged to Home. Impression: Sacroiliitis, not elsewhere classified, Sciatica, left side. - Condition is Stable. - Discharge Instructions: Sciatica, Sciatica, [id number]. - Prescriptions for Anaprox DS 550 mg Oral Tablet - take 1 tablet by ORAL route every 12 hours As needed; 20 tablet. Robaxin 500 mg Oral Tablet - take 2 tablet by ORAL route every 6 hours As needed; 40 tablet. Medrol (Payam) 4 mg Oral Tablets, Dose Pack - take 1 tablet by ORAL route as directed - follow package instructions; 1 packet. - Work release form, Medication Reconciliation Form, Thank You Letter, Antibiotic Education, Prescription Opioid Use form. - Follow up: Piotr Gallegos MD; When: As needed; Reason: Further diagnostic work-up, Recheck today's complaints, Continuance of care, Re-evaluation by your physician. Follow up: Emergency Department; When: As needed; Reason: Worsening of condition, problems with urinating or with stool. Fever > 102.. - Problem is an acute exacerbation. - Symptoms have worsened. Signatures: Juan Landon RN RN sg Karina Michel RN RN aa5 Molina Vadlez MD MD ps1 Corrections: (The following items were deleted from the chart) 08:37 08:31 08/21/2018 08:31 Discharged to Home. Impression: Sacroiliitis, not elsewhere sg classified; Sciatica, left side. Condition is Stable. Forms are Medication Reconciliation Form, Thank You Letter, Antibiotic Education, Prescription Opioid Use. Follow up: Piotr Gallegos; When: As needed; Reason: Further diagnostic work-up, Recheck today's complaints, Continuance of care, Re-evaluation by your physician. Follow up: Emergency Department; When: As needed; Reason: Worsening of condition, problems with urinating or with stool. Fever > 102.. Problem is an acute exacerbation. Symptoms have worsened. ps1
[2018-08-21 08:56] VITALS: BP 116/77; TEMP 98.2; O2SAT 99
== END 2018-08-21 08:37 | disposition home or self-care (01) ==
LOC: ER 07:22
DX: M46.1 Sacroiliitis, not elsewhere classified (principal); M54.32 Sciatica, left side
CPT/HCPCS: 99283

== ENCOUNTER 2022-02-01 08:44 | Emergency (ER) | payer SELFPAY ==
--- OUTSIDE RECORDS SUMMARY | 2022-02-01 08:48 | XMS REPORT | Continuity of Care Document ---
:1990 Author Organization [facility] t Address [address] [place] [address] Care Team Providers Name Role Phone Autumn GILLILAND, Amrik Alvarado Primary Care Physician [phone] Visit, KishanRmchcuba Nurse Attending Clinician Unavailable Vianca Elliott Attending Clinician VIANCA FULLER Attending Clinician Unavailable NICOLE BOYKNI Attending Clinician Unavailable Nicole Espinal Attending Clinician Doctor Unassigned, [place] Attending Clinician Unavailable Payers Payer Name Policy Type Policy Number Effective Date Expiration Date S ource Problems Condition Condition Condition Status Onset Resolution Last Treating Co mments Source Name Details Category Date Date Treatment Clinician Date Lumbar Lumbar Disease Active Univers herniated herniated 8-09 ity of disc disc 00:00: [address] DDD DDD Disease Active Univers (degenerat (degenerat 7-24 it y of dandy disc dandy disc 00:00: [place] disease), disease), 00 [facility] lumbar lumbar Branch Left sided Left sided Disease Active U daniel sciatica sciatica 7-24 ity of 00:00: [address] Overweight Overweight Disease Active 2015-04 U daniel (BMI (BMI 1-08 ity of 25.0-29.9) 25.0-29.9[place] [facility] [place] History of History of Disease Active 2015-04 U daniel bilateral bilateral -08 ity of tubal tubal 00:00: [place] ligation ligation 00 Medica l Branch Dysmenorrh Dysmenorrh Disease Active 2015-04 U daniel ea ea -08 ity of 00:00: [place] 00 Medical Branch History of History of Disease Active 2013-04 U daniel heart heart 1-18 [place] of surgery - [place] repair [place] 00 [facility] patent patent Branch ductus ductus Obesity Obesity Disease Active Overview: Univ ers 3-31 Formattin ity of 00:00: g of this note Medical might be Branch different from the original. ICD10 Diagnosis Term Residential Aide Utility Allergies, Adverse Reactions, Alerts Allergy Allergy Status Severity Reaction(s) Onset Inactive Treating Comm ents Source Name Type Date Date Clinician CEFACLOR DRUG Active Med Rash Univers INGREDI 08-19 ity of 00:00: [place] 00 Medical Branch Cefaclor Drug Active Rash Univers Intolera 08-19 ity of nce 00:00: [place] 00 [facility] Social History Social Habit Start Date Stop Date Quantity Comments Source Exposure to 2021-12-02 2021-12-12 Not sure [facility] SARS-CoV-2 (event) 00:00:00 08:38:00 [facility] Tobacco use and 2021-09-18 2021-09-18 Smokeless Universit y of exposure 00:00:00 00:00:00 tobacco non-user [facility] Alcohol intake 2021-09-18 2021-09-18 Current University of 00:00:00 00:00:00 non-drinker of [facility] alcohol Branch (finding) Cigarettes smoked 2021-09-18 2021-09-18 Univers ity of current (pack per 00:00:00 00:00:00 [place] ) - Reported Branch History of tobacco 2021-08-25 Cigarette Smoker University of use 00:00:00 [facility] Sex Ass[birth year] At [birth year] Universit y of 00:00:00 00:00:00 [facility] Smoking Status Start Date Stop Date Source Ex-smoker 2021-09-18 00:00:00 2021-09-18 00:00:00 Universi [facility] Medications Ordered Filled Start Stop Current Ordering Indication Dosage Frequency Signature Comments Components Source Medication Medication Date Date Medication? Clinician (SIG) Name Name medroxyPROG 2020-04- No [id number] 150mg Univers ESTERone 2-15 11-16 ity of (DEPO-PROVE 16:45: 16:44 [place] RA) 00 :00 Medical injection Branch 150 mg medroxyPROG 2020-04- No [id number] 150mg 150 mg, Univers ESTERone 2-15 11-16 Intramuscu ity of (DEPO-PROVE 16:45: 16:44 lar, [place] RA) 00 :00 [id number], Medical injection 4 doses, Branch 150 mg First dose on Thu04/03/21 at 1045, Last dose on Thu12/11/21 at 1045, Routine medroxyPROG 2020-04- No [id number] 150mg 150 mg, Univers ESTERone 2-15 08-25 Intramuscu ity of (DEPO-PROVE 16:45: 13:47 lar, [place] RA) 00 :00 [id number], Medical injection 4 doses, Branch 150 mg First dose on Thu04/03/21 at 1045, Last dose on Thu12/11/21 at 1045, Routine Lactobacill 2020-04 Yes Take by Uni vers us 2-15 mouth. ity of acidophilus 10:14: [place] (PROBIOTIC 11 Medical ORAL) [place] Lactobacill 2020-04 Yes Take by Uni vers us 2-15 mouth. ity of acidophilus 10:14: [place] (PROBIOTIC 11 Medical ORAL) [place] naproxen 2020-04 Yes [id number] Take 2 Uni vers 250 mg 2-15 tablets by ity of tablet 00:00: mouth for [place] [address] initial Medical dose, then Branch take 1 tablet by mouth every 6-8 hours as needed for pain. naproxen 2020-04 Yes [id number] Take 2 Uni vers 250 mg 2-15 tablets by ity of tablet 00:00: mouth for [place] [address] initial Medical dose, then Branch take 1 tablet by mouth every 6-8 hours as needed for pain. Immunizations Ordered Filled Immunization Date Status Comments Sour e Immunization Name Name MMR 2014-03-09 Completed [facility] 00:00:00 [facility] MMR 2014-03-09 Completed [facility] 00:00:00 [facility] TDAP 2013-12-22 Completed University of 00:00:00 [facility] TDAP 2013-12-22 Completed University of 00:00:00 [facility] Influenza Virus 2013-07-18 Completed Universit y of Vaccine (3+ yrs) 00:00:00 [facility] Influenza Virus 2013-07-18 Completed Universit y of Vaccine (3+ yrs) 00:00:00 [facility] Influenza Virus 2011-03-09 Completed Universit y of Vaccine 00:00:00 [facility] Influenza Virus 2011-03-09 Completed Universit y of Vaccine 00:00:00 [facility] Rubella 2010-07-09 Completed University of 00:00:00 [facility] Varicella 2010-07-09 Completed University of (varivax)(chicken 00:00:00 [facility] edical pox) Branch Rubella 2010-07-09 Completed University of 00:00:00 [facility] Varicella 2010-07-09 Completed University of (varivax)(chicken 00:00:00 [facility] edical pox) Branch TDAP 2010-04-20 Completed University of 00:00:00 [facility] TDAP 2010-04-20 Completed University of 00:00:00 [facility] Vital Signs Vital Name Observation Time Observation Value Comments Source Systolic blood 2021-12-12 13:38:00 104 mm[Hg] Univer sity of pressure [facility] Diastolic blood 2021-12-12 13:38:00 59 mm[Hg] Unive rsity [facility] Heart rate 2021-12-12 13:38:00 62 /min [facility] Body temperature 2021-12-12 13:38:00 37.39 Taniya [facility] Respiratory rate 2021-12-12 13:38:00 20 /min [facility] Body height 2021-12-12 13:38:00 170.2 cm [facility] Body weight 2021-12-12 13:38:00 78.926 kg [facility] BMI 2021-12-12 13:38:00 27.25 kg/m2 [facility] Systolic blood 2021-09-18 14:21:00 105 mm[Hg] Univer sity of pressure [facility] Diastolic blood 2021-09-18 14:21:00 63 mm[Hg] Unive rsity of pressure [facility] Heart rate 2021-09-18 14:21:00 61 /min [facility] Body temperature 2021-09-18 14:21:00 36.39 Taniya [facility] Respiratory rate 2021-09-18 14:21:00 16 /min [facility] Body height 2021-09-18 14:21:00 170.2 cm [facility] Body weight 2021-09-18 14:21:00 77.928 kg [facility] BMI 2021-09-18 14:21:00 26.91 kg/m2 [facility] Procedures This patient has no known procedures. Encounters Start End Encounter Admission Attending Care Care Encounter Source Date/Time Date/Time Type Type Clinicians Facility Department ID 2022-03-18 2022-03-18 Outpatient R [facility] [id number] Univers 10:30:00 10:30:00 [facility] 2021-12-12 2021-12-12 Nurse Visit, Ang-Rmchp Nurse [facility] [id number] Univers 08:30:00 08:44:33 Visit Vianca Fuller [facility] [id number] [facility] [id number] [place] as MATERNAL [id number] Med ical & CHILD [address] [place] [address] 2021-12-12 2021-12-12 Outpatient Abbi FULLER [facility] [id number] Univers 08:30:00 08:30:00 VIANCA casas o [facility] 2021-12-11 2021-12-11 Outpatient R [facility] [id number] Univers 10:30:00 [facility]30[facility] 2021-12-11 2021-12-11 Outpatient Abbi FULLER [facility] [id number] Univers 10:30:00 10:30:00 VIANCA casas o [facility] 2021-09-18 2021-09-18 Outpatient Abbi FULLER [facility] [id number] Univers 09:00:00 09:48:10 VIANCA stoll [facility] 2021-09-18 2021-09-18 Office Jimena [facility] [id number] Univers 09:00:00 09:48:10 Visit Vianca Go [facility] [place] [id number] ity of REGIONAL [id number] [place] MATERNAL [id number] [facility] & CHILD [address] [place] [address] 2021-09-18 2021-09-18 Outpatient Abbi FULLER [facility] [id number] Univers 09:00:00 09:48:10 VIANCA stoll [facility] 2021-09-18 2021-09-18 Outpatient R JIMENA [facility] [id number] Univers 09:00:00 09:00:00 VIANCA stoll [facility] 2021-06-26 2021-06-26 Nurse Visit, [facility] Nurse [facility] [id number] Univers 09:30:00 09:42:59 Visit Vianca Fuller [place] [id number] ity of REGIONAL [id number] [place] MATERNAL [id number] [facility] & [address] 2021-06-26 2021-06-26 Outpatient R JIMENA [facility] [id number] Univers 09:30:00 09:30:00 VIANCA stoll [facility] 2021-06-26 2021-06-26 Outpatient R [facility] [id number] Univers 09:30:00 09:30:00 ity [facility] 2021-04-03 2021-04-03 [facility] [id number] Univers 10:15:00 10:54:17 NICOLE casas [facility] 2021-04-03 2021-04-03 [facility] [id number] Univers 10:15:00 10:54:17 NICOLE casas [facility] 2021-04-03 2021-04-03 [facility] [id number] Univers 10:15:00 10:54:17 Visit Nicole Delgadillo [place] [id number] it y of [facility] [id number] [place] MATERNAL [id number] Med ical & CHILD [address] [place] [address] 2021-04-03 2021-04-03 Outpatient R LUCRETIA [facility] [id number] [facility] 10:15:00 10:15:00 NICOLE casas of [facility] 2021-04-03 2021-04-03 Orders Doctor STEVE [id number] [place] [address] 00:00:00 00:00:00 Only Unassigned, KATLYN [id number] ity of [place] [facility] [id number] [place] as [phone] [address] Results This patient has no known results.
[2022-02-01] MEDS ORDERED: NA CHLORIDE 0.9% 1,000 ML ONE (09:33)
[2022-02-01] MEDS ORDERED: KETOROLAC 30 MG/ML INJ ONE (09:33)
[2022-02-01 09:59] LABS: Absolute Lymphocytes (CBC) 0.9 K/uL (0.7-4.9); Hematocrit 41.6 % (36.0-45.0); Lymphocytes % 12.2 % (15.3-44.8); MCV 92.1 fL (80-100); MPV 8.6 fL (7.6-11.3); RBC Red Blood Cell Count 4.51 M/uL (3.86-4.86)
[2022-02-01 10:11] LABS: Albumin 3.9 g/dL (3.4-5.0); Bilirubin Total 0.5 mg/dL (0.2-1.0); Potassium 3.8 mmol/L (3.5-5.1); Protein, Total 7.6 g/dL (6.4-8.2); Troponin High Sensitivity 18.3 pg/mL (<58.9)
--- NOTE | 2022-02-01 10:19 | RAD REPORT ---
EXAM DESCRIPTION: CT - Chest Abd Pelvis Wo Con - 02/01/2022 9:54 am CLINICAL HISTORY: Chest and abdominal pain COMPARISON: 2015 TECHNIQUE: Computed axial tomography of the chest, abdomen and pelvis was obtained. Oral contrast wa s given. IV contrast was not requested. All CT scans are performed using dose optimization technique as appropriate and may include automated exposure control or mA/KV adjustment according to patient size. FINDINGS: The evaluation of mediastinum, alina, vessels and solid organs is limited secondary to the lack of IV contrast administration Subcentimeter nodule left lower lobe unchanged is benign No mediastinal or hilar lymphadenopathy is seen. A pleural effusion is not present. A pericardial effusion is not seen. The liver, spleen, pancreas, adrenals and right kidney appear grossly normal 1 millimeter calculus left kidney. No hydronephrosis There is no evidence of diverticulitis. 4 centimeter left ovarian mass IMPRESSION: 4 centimeter left ovarian mass likely benign. A followup ultrasound in couple months rec ommended for re-evaluation
--- NOTE | 2022-02-01 10:22 | RAD REPORT ---
EXAM DESCRIPTION: CT - Head Brain Wo Cont - 02/01/2022 9:53 am CLINICAL HISTORY: Seizure COMPARISON: None. TECHNIQUE: Computed axial tomography of the head was obtained. IV contrast was not requested. All CT scans are performed using dose optimization technique as appropriate and may include automated exposure control or mA/KV adjustment according to patient size. FINDINGS: An intracranial bleed is not seen . The ventricles are normal in caliber. No significant hypodense areas within the brain visualized No extra-axial fluid collection is noted. Fluid within the sinuses/ mastoids is not seen. IMPRESSION: No acute intracranial abnormality is seen. If patient's symptoms persist MRI of the bra in would be recommended.
--- NOTE | 2022-02-01 12:10 | EDPHYS ---
Physician Documentation [facility] Name: Juanpablo De Paz Age: 32 yrs Sex: Female : 1990 Arrival Date: 02/01/2022 Time: 08:46 Bed 2 Private MD: ED Physician Geovanny Encinas HPI: 02/01 09:07 This 32 yrs old Female presents to ER via Ambulatory with complaints of Probable kdr Seizure, bodyaches, Nausea/Vomiting, Doesn't Feel Right. 09:07 Patient reports that during her sleep last night, she may have had a seizure. Her kdr states that the patient had rhythmic tonic-clonic jerking and of her extremities and also her head to the right. That lasted about 3 to 4 minutes. EMS was called at that time. When EMS arrived the patient had stopped the jerking activity but apparently was mildly postictal. Patient's states it took about 15 minutes for the patient to return close to baseline. Patient has had no prior history of seizures before. Patient now complains of generalized headache frontal area and also chest pain and back pain. She has not had this kind of pain before.. Onset: The symptoms/episode began/occurred this morning. Severity of symptoms: At their worst the symptoms were mild moderate incapacitating in the emergency department the symptoms have improved markedly. The patient has not experienced similar symptoms in the past. The patient has not recently seen a physician. 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 - Social history:: Smoking status: Reported history of juuling and/or vaping. ROS: 09:07 Constitutional: Negative for fever, chills, and weight loss, Eyes: Negative for injury, kdr pain, redness, and discharge, ENT: Negative for injury, pain, and discharge, Neck: Negative for injury, pain, and swelling, Respiratory: Negative for shortness of breath, cough, wheezing, and pleuritic chest pain, Abdomen/GI: Negative for abdominal pain, nausea, vomiting, diarrhea, and constipation, : Negative for injury, bleeding, discharge, and swelling, MS/Extremity: Negative for injury and deformity, Skin: Negative for injury, rash, and discoloration, Psych: Negative for depression, anxiety, suicide ideation, homicidal ideation, and hallucinations, Allergy/Immunology: Negative for hives, rash, and allergies, Endocrine: Negative for neck swelling, polydipsia, polyuria, polyphagia, and marked weight changes, Hematologic/Lymphatic: Negative for swollen nodes, abnormal bleeding, and unusual bruising. 09:07 Neuro: Positive for headache, loss of consciousness, Negative for altered mental status, dizziness, gait disturbance, hearing loss, numbness, seizure activity, speech changes, syncope. Exam: 09:07 Constitutional: This is a well developed, well nourished patient who is awake, alert, kdr and in no acute distress. Head/Face: Normocephalic, atraumatic. Eyes: Pupils equal round and reactive to light, extra-ocular motions intact. Lids and lashes normal. Conjunctiva and sclera are non-icteric and not injected. Cornea within normal limits. Periorbital areas with no swelling, redness, or edema. Neck: Trachea midline, no thyromegaly or masses palpated, and no cervical lymphadenopathy. Supple, full range of motion without nuchal rigidity, or vertebral point tenderness. No Meningismus. Chest/axilla: Normal chest wall appearance and motion. Nontender with no deformity. No lesions are appreciated. Cardiovascular: Regular rate and rhythm with a normal S1 and S2. No gallops, murmurs, or rubs. Normal PMI, no JVD. No pulse deficits. Respiratory: Lungs have equal breath sounds bilaterally, clear to auscultation and percussion. No rales, rhonchi or wheezes noted. No increased work of breathing, no retractions or nasal flaring. Abdomen/GI: Soft, non-tender, with normal bowel sounds. No distension or tympany. No guarding or rebound. No evidence of tenderness throughout. Back: No spinal tenderness. No costovertebral tenderness. Full range of motion. Skin: Warm, dry with normal turgor. Normal color with no rashes, no lesions, and no evidence of cellulitis. MS/ Extremity: Pulses equal, no cyanosis. Neurovascular intact. Full, normal range of motion. Neuro: Awake and alert, GCS 15, oriented to person, place, time, and situation. Cranial nerves II-XII grossly intact. Motor strength 5/5 in all extremities. Sensory grossly intact. Cerebellar exam normal. Normal gait. Psych: Awake, alert, with orientation to person, place and time. Behavior, mood, and affect are within normal limits. 11:50 ECG was reviewed by the Attending Physician. kdr Vital Signs: 08:55 BP 126 / 69; Pulse 76; Resp 17; Temp 98.1; Pulse Ox 98% ; Weight 77.11 kg; Height 5 ft. jl7 7 in. (170.18 cm); Pain 9/10; 10:30 BP 93 / 56; Pulse 68; Resp 16; Pulse Ox 100% ; bp 11:53 BP 110 / 73; Pulse 66; Resp 16; Pulse Ox 99% ; bp 12:41 BP 125 / 66; Pulse 63; Resp 16; Pulse Ox 99% ; bp 08:55 Body Mass Index 26.63 (77.11 kg, 170.18 cm) jl7 Jovanna Coma Score: 08:57 Eye Response: spontaneous(4). Verbal Response: oriented(5). Motor Response: obeys jl7 commands(6). Total: 15. MDM: 12:09 Patient medically screened. kdr 13:34 Data reviewed: vital signs, nurses notes, lab test result(s), radiologic studies. kdr Counseling: I had a detailed discussion with the patient and/or guardian regarding: the historical points, exam findings, and any diagnostic results supporting the discharge/admit diagnosis, radiology results, the need for outpatient follow up, the need to transfer to another facility. 02/01 09:05 Order name: CBC with Diff; Complete Time: 10:40 kdr 02/01 09:05 Order name: Comprehensive Metabolic Panel; Complete Time: 10:40 kdr 02/01 09:05 Order name: CT Head Brain wo Cont; Complete Time: 10:40 kdr 02/01 09:05 Order name: Troponin High Sensitivity; Complete Time: 10:40 kdr 02/01 09:05 Order name: CPK; Complete Time: 10:40 kdr 02/01 09:07 Order name: CT Chest Abdomen Pelvis W/O Contrast; Complete Time: 10:40 kdr 02/01 11:35 Order name: EKG - Nurse/Tech; Complete Time: 11:54 kdr EC:50 Rate is 68 beats/min. Rhythm is regular, Sinus Rhythm with No ectopy. QRS [place] is kdr Normal. [place] interval is normal. QRS interval is normal. QT interval is normal. Clinical impression: NSR w/ Non-specific ST/T Changes. Administered Medications: 09:30 Drug: NS 0.9% 1000 ml Route: IV; Rate: 1 bolus; Site: right forearm; bp 09:30 Drug: Ketorolac 15 mg Route: IVP; Site: right forearm; bp 11:54 Follow up: Response: No adverse reaction bp Disposition Summary: 02/01/22 12:09 Discharge Ordered Location: Home kdr Problem: new kdr Symptoms: are resolved kdr Condition: Stable kdr Diagnosis - Other seizures kdr Followup: kdr - With: Private Physician - When: 2 - 3 days - Reason: If symptoms return, Further diagnostic work-up, Recheck today's complaints, Continuance of care, Re-evaluation by your physician Discharge Instructions: - Discharge Summary Sheet kdr - Seizure, Adult, [id number] kdr Forms: - Medication Reconciliation Form kdr - Thank You Letter kdr Signatures: Dispatcher [employer] Geovanny Navarro MD MD kdr Luanne Scott, RN RN jl7 Ramone Draper RN RN bp
--- NOTE | 2022-02-01 12:10 | ER ---
[facility] Name: Juanpablo De Paz Age: 32 yrs Sex: Female : 1990 Arrival Date: 02/01/2022 Time: 08:46 Bed 2 Private MD: Diagnosis: Other seizures Presentation: 02/01 08:55 Chief complaint: Patient states: "I might have had seizures while I was sleeping." jl7 Denies hx of seizures. Was checked out by EMS but denied transport. Reports Mid-sternal CP, radiates to back. Coronavirus screen: At this time, the client does not indicate any symptoms associated with coronavirus-19. Ebola Screen: No symptoms or risks identified at this time. Initial Sepsis Screen: Does the patient meet any 2 criteria? No. Patient's initial sepsis screen is negative. Does the patient have a suspected source of infection? No. Patient's initial sepsis screen is negative. Risk Assessment: Do you want to hurt yourself or someone else? Patient reports no desire to harm self or others. Onset of symptoms was February 01, 2022. 08:55 Method Of Arrival: Ambulatory [facility] 08:55 Acuity: ARTURO 2 [facility] Triage Assessment: 08:57 General: Appears in no apparent distress. uncomfortable, Behavior is cooperative, jl7 anxious. Pain: Complains of pain in mid-sternal area Pain radiates to thoracic area Pain currently is 9 out of 10 on a pain scale. Neuro: Level of Consciousness is awake, alert, obeys commands, Oriented to person, place, time, situation. 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 - Social history:: Smoking status: Reported history of juuling and/or vaping. Screenin:37 Abuse screen: Denies threats or abuse. Denies injuries from another. Nutritional bp screening: No deficits noted. Tuberculosis screening: No symptoms or risk factors identified. Fall Risk None identified. Assessment: 09:00 General: SEE TRIAGE NOTE. bp 10:00 Reassessment: No changes from previously documented assessment. Patient and/or family bp updated on plan of care and expected duration. Pain level reassessed. 11:53 Reassessment: No changes from previously documented assessment. Patient and/or family bp updated on plan of care and expected duration. Pain level reassessed. 12:41 Reassessment: PT DC HOME AMBULATORY. bp Vital Signs: 08:55 BP 126 / 69; Pulse 76; Resp 17; Temp 98.1; Pulse Ox 98% ; Weight 77.11 kg; Height 5 ft. jl7 7 in. (170.18 cm); Pain 9/10; 10:30 BP 93 / 56; Pulse 68; Resp 16; Pulse Ox 100% ; bp 11:53 BP 110 / 73; Pulse 66; Resp 16; Pulse Ox 99% ; bp 12:41 BP 125 / 66; Pulse 63; Resp 16; Pulse Ox 99% ; bp 08:55 Body Mass Index 26.63 (77.11 kg, 170.18 cm) jl7 Joffre Coma Score: 08:57 Eye Response: spontaneous(4). Verbal Response: oriented(5). Motor Response: obeys jl7 commands(6). Total: 15. ED Course: 08:46 Patient arrived in ED. am2 08:46 Geovanny Encinas MD is Attending Physician. kdr 08:55 Ramone Draper, ALTHEA is Primary Nurse. bp 08:57 Triage completed. jl7 08:57 Arm band placed on right wrist. jl7 09:00 Seizure precautions initiated. bp 09:30 Inserted saline lock: 22 gauge in right forearm, using aseptic technique. Blood bp collected. 09:55 CT Head Brain wo Cont In Process Unspecified. EDMS 09:55 CT Chest Abdomen Pelvis W/O Contrast In Process Unspecified. EDMS 10:37 Patient has correct armband on for positive identification. Bed in low position. Call bp light in reach. Side rails up X2. Adult w/ patient. 12:43 No provider procedures requiring assistance completed. IV discontinued, intact, bp bleeding controlled, No redness/swelling at site. Pressure dressing applied. Administered Medications: 09:30 Drug: NS 0.9% 1000 ml Route: IV; Rate: 1 bolus; Site: right forearm; bp 09:30 Drug: Ketorolac 15 mg Route: IVP; Site: right forearm; bp 11:54 Follow up: Response: No adverse reaction bp Medication: 12:41 VIS not applicable for this client. bp Outcome: 12:09 Discharge ordered by . kdr 12:43 Discharged to home ambulatory, with family. bp 12:43 Condition: stable 12:43 Discharge instructions given to patient, Instructed on discharge instructions, follow up and referral plans. Demonstrated understanding of instructions, follow-up care. 12:48 Patient left the ED. jl7 Signatures: Dispatcher [employer] EDMS Geovanny Encinas MD MD kdr Leal, Jahala RN RN jl7 Gloria Pitt Brian, RN RN bp
[2022-02-01 13:11] VITALS: TEMP 98.1
[2022-02-01 13:14] VITALS: O2SAT 99
[2022-02-01 13:15] VITALS: BP 125/66
--- NOTE | 2022-02-03 16:12 | EKG ---
Test Date: 2022-02-01 Test Time: 11:45:11 [employer] Operator: ALEX MEASUREMENT RESULTS: Intervals: Rate: 68 IN: 148 QRSD: 114 QT: 454 QTc: 482 [place]: P: 80 IN: 148 QRS: 3 T: 44 INTERPRETIVE STATEMENTS: Normal sinus rhythm Lateral infarct, age undetermined Abnormal ECG Compared to ECG 03/09/2013 10:54:38 Myocardial infarct finding now present Left ventricular hypertrophy no longer present ST (T wave) deviation no longer present Electronically Signed On 02-03-22 16:09:14 CDT by Azael Almeida
== END 2022-02-01 12:48 | disposition home or self-care (01) ==
LOC: ER 08:44
DX: R56.9 Unspecified convulsions (principal); R51.9 Headache, unspecified; Z88.8 Allergy status to other drugs, medicaments and biological substances
CPT/HCPCS: 36415; 70450; 71250; 74176; 80053; 82550; 84484; 85025; 93005; 96374; 99284; J7030